=== PATIENT | male | born 1940 | race Caucasian/White ===

== ENCOUNTER 2017-03-04 10:20 | Outpatient (CLI) | payer MEDICARE ==
[2017-03-04 12:21] LABS: Hematocrit 45.1 % (42.0-52.0); Mean Platelet Volume 7.4 fL (7.4-10.4); Red Blood Cell (RBC) Count 4.79 mill/uL (4.70-6.10); White Blood Cell (WBC) Count 8.2 thou/uL (4.8-10.8)
[2017-03-04 12:26] LABS: Prothrombin Time 13.5 SEC (12.0-14.7)
[2017-03-04 12:40] LABS: Anion Gap 11 mmol/L (10-20); BUN (Urea Nitrogen) 22 mg/dL (8.4-25.7); Calc. Creatinine Clearance 0 mL/min (70-130); Calcium 9.4 mg/dL (7.8-10.44); Carbon Dioxide 29 mmol/L (23-31); Chloride 102 mmol/L (98-107); Estimated GFR-MDRD 63
--- NOTE | 2017-03-04 14:51 | EKG ---
Test Reason : Blood Pressure : / mmHG Vent. Rate : 060 BPM Atrial Rate : 060 BPM P-R Int : 184 ms QRS Dur : 098 ms QT Int : 424 ms P-R-T Axes : 030 -16 014 degrees QTc Int : 424 ms Normal sinus rhythm Inferior infarct , age undetermined cannot be excluded Abnormal ECG Confirmed by MALCOLM RAJAN ([id number]) on 03/04/2017 2:51:22 PM Referred By: MARIZA Confirmed By:MALCOLM RAJAN
== END 2017-03-04 10:21 | disposition home or self-care (01) ==
LOC: LABBT 10:20
PROVIDERS: ATTEND Orthopaedic Surgery
DX: Z01.818 Encounter for other preprocedural examination (principal); M19.071 Primary osteoarthritis, right ankle and foot
CPT/HCPCS: 80048; 85027; 85610; 85730; 86850; 86900; 86901; 87081; 93005; 93010

== ENCOUNTER 2017-03-04 10:30 | Inpatient (IN) | payer MEDICARE ==
[2017-03-04 10:41] VITALS: BMI 28.1
[2017-03-11] MEDS ORDERED: CEFAZOLIN/Water 2 GM/20 ML SYRINGE ONE (11:04)
[2017-03-11] MEDS ORDERED: Fentanyl 100 MCG/2 ML VIAL ONE ×4 (11:16→17:06)
[2017-03-11] MEDS ORDERED: Midazolam HCl 2 mg/2 ml Vial ONE (11:16)
[2017-03-11] MEDS ORDERED: traMADol HCl 50 MG TAB PO PRN ×3 (11:57→17:54)
[2017-03-11] MEDS ORDERED: Fentanyl 100 MCG/2 ML VIAL IV PRN (11:58)
[2017-03-11] MEDS ORDERED: Ropivacaine HCl/PF 750 ML in Premix Bag 1 BAG NERVE BLCK SCH (12:00)
[2017-03-11] MEDS ORDERED: Scopolamine 1.5 mg/72 hour Patch ONE (12:22)
[2017-03-11] MEDS ORDERED: Ropivacaine 0.5% HCl/PF (150 MG/30 ML VIAL) ONE (13:26)
[2017-03-11] MEDS ORDERED: Ropivacaine 0.2% HCl/PF (40 MG/20 ML VIAL) ONE (13:26)
[2017-03-11] MEDS ORDERED: Metoclopramide HCl 10 MG/2 ML VIAL ONE (13:40)
[2017-03-11] MEDS ORDERED: Dexamethasone 20 MG/5 ML VIAL ONE (13:40)
[2017-03-11] MEDS ORDERED: Propofol 200 MG/20 ML VIAL ONE (13:40)
[2017-03-11] MEDS ORDERED: Ondansetron HCl/PF 4 MG/2 ML Vial ONE (13:40)
[2017-03-11] MEDS ORDERED: Glycopyrrolate 0.2 MG/ML 5 ML SYRINGE ONE (13:40)
[2017-03-11] MEDS ORDERED: Lidocaine 1% PF 5 ML VIAL ONE (13:40)
[2017-03-11] MEDS ORDERED: Ondansetron HCl/PF 4 MG/2 ML Vial IVP PRN ×3 (17:52→17:54)
[2017-03-11] MEDS ORDERED: Meperidine HCl/PF 25 MG/ML VIAL SLOW IVP PRN (17:53)
[2017-03-11] MEDS ORDERED: Promethazine HCl 25 MG/ML VIAL SLOW IVP PRN (17:53)
[2017-03-11] MEDS ORDERED: Promethazine HCl 25 MG/ML VIAL IM PRN (17:53)
[2017-03-11] MEDS ORDERED: Acetaminophen 325 MG TAB PO PRN (17:54)
[2017-03-11] MEDS ORDERED: diphenhydrAMINE 25 MG CAP PO PRN (17:54)
[2017-03-11] MEDS ORDERED: Morphine 2 MG/ML SYRINGE IVP PRN (17:54)
[2017-03-11] MEDS ORDERED: Zolpidem Tartrate 5 MG TAB PO PRN (17:54)
[2017-03-11] MEDS ORDERED: Acetaminophen 1,000 MG in Premix Bag 1 BAG IVPB SCH (18:00)
[2017-03-11] MEDS ORDERED: CEFAZOLIN/Water 2 GM/20 ML SYRINGE SLOW IVP SCH (18:30)
--- NOTE | 2017-03-11 20:06 | RAD ---
THREE VIEWS RIGHT ANKLE: 03/11/17 HISTORY: Right ankle arthroplasty. Three intraoperative images obtained. Images demonstrate a right ankle arthroplasty. Distal tibial and talar dome components are in good p osition. IMPRESSION: Status post right ankle arthroplasty. POS: [facility]
[2017-03-11] MEDS: Ketorolac Tromethamine 30 MG/ML VIAL IVP SCH ×2 (21:26→21:27)
[2017-03-11] MEDS: Sodium Chloride 0.9% 1,000 ML IV SCH (21:28)
[2017-03-11] MEDS: Aspirin 325 MG TAB PO SCH (21:45)
[2017-03-12] MEDS: CEFAZOLIN/Water 2 GM/20 ML SYRINGE SLOW IVP SCH ×2 (00:03→09:57)
[2017-03-12] MEDS: Ketorolac Tromethamine 30 MG/ML VIAL IVP SCH ×2 (00:03→06:46)
[2017-03-12] MEDS: Sodium Chloride 0.9% 1,000 ML IV SCH (00:50)
[2017-03-12 04:16] VITALS: TEMP 98.6
[2017-03-12 06:48] LABS: Hematocrit 35.9 % (42.0-52.0); Mean Platelet Volume 7.7 fL (7.4-10.4); Red Blood Cell (RBC) Count 3.78 mill/uL (4.70-6.10); White Blood Cell (WBC) Count 11.4 thou/uL (4.8-10.8)
[2017-03-12] MEDS ORDERED: Ferrous Gluconate 324 MG TAB PO SCH (08:00)
[2017-03-12] MEDS ORDERED: Senokot S 8.6-50 MG TAB PO SCH (09:00)
[2017-03-12] MEDS ORDERED: FLU VACC TS2017-18 (>65YR) 0.5 ML SYRINGE IM ONE (09:00)
[2017-03-12] MEDS ORDERED: Lisinopril/Hydrochlorothiazide 20 mg/12.5 mg Tablet PO SCH (09:00)
[2017-03-12] MEDS ORDERED: Multivitamin W/ Minerals 1 TAB PO SCH (09:00)
[2017-03-12] MEDS: Aspirin 325 MG TAB PO SCH (09:56)
[2017-03-12 11:25] VITALS: BP 120/70
--- OUTSIDE RECORDS SUMMARY | 2017-03-12 17:25 | XMS | Clinical Summary ---
:1940 Author Organization [facility] Address [address] [place] [address] Phone Care Team Providers Name Role Phone , Primary Care Provider Unavailable Allergies Not on File Current Medications Not on file Active Problems Not on file Social History Tobacco Use Types Packs/Day Years Used Date Never Assessed Sex Assigned at Date Recorded Not on file Last Filed Vital Signs Not on file Plan of Treatment Not on file Results Not on filefrom Last 3 Months
--- OUTSIDE RECORDS SUMMARY | 2017-03-12 17:25 | XMS | Clinical Summary ---
:1940 Author Organization [facility] Address [address] [place] [phone] Phone Care Team Providers Name Role Phone [...]
--- NOTE | 2017-03-13 14:43 | OP ---
DATE OF PROCEDURE: 03/11/2017 PREOPERATIVE DIAGNOSIS: Posttraumatic right ankle arthrosis. POSTOPERATIVE DIAGNOSIS: Posttraumatic right ankle arthrosis. PROCEDURES: 1. Right total ankle arthroplasty. 2. Hardware removal, right ankle deep. 3. Fluoroscopic guidance internal fixation. ANESTHESIA: General. SURGEON: Nakul Wright M.D. GYM INSTRUCTOR: Vinay Agosto PA-C COMPLICATIONS: None. CONDITION: Good. ESTIMATED BLOOD LOSS: 150 mL. DRAINS: None. TOURNIQUET: Per Anesthesia. TECHNIQUE: Consent was obtained. The patient taken to the operating room, placed in the supine pos ition. After adequate general anesthesia had been achieved, the patient's right ankle was examined. The patient had marked limitation of the tibiotalar motion with moderate subtalar and transverse t arsal limitation. The foot lacked approximately 10 degrees of dorsiflexion with the knee extended. The right lower extremity was then positioned, prepped and draped in the usual sterile fashion. To urniquet placed on right upper thigh. The left lower extremity was placed in an abducted flexed pos ition, well padded with a thigh batista device. The image intensifier used to check position and loc ation of the true mortise view prior to procedure beginning. Right lower extremity was then prepped and draped in the usual sterile fashion. A direct lateral approach to the distal fibula was perfor med. This allowed access to the fibular plate, which was removed in its entirety. Medial malleolar screws were also removed. Single anteromedial malleolar screw was removed. The right lower extrem ity was then elevated, exsanguinated, and tourniquet inflated prior to incision. A direct anterior approach to the ankle was performed. Neurovascular structures were retracted laterally. The interv al between the EHL and the anterior tibia exposed. The anterior capsular structures were elevated, and the patient had large osteophytes anteriorly. Osteotome used to resect the tibial and talar ost eophytes, improving the motion. The anterior screws were also removed from the distal tibia. After mobilization, the patient still had significant restriction in dorsiflexion. A percutaneous tendo- Achilles lengthening was performed. This improved dorsiflexion to 5-10 degrees. The patient was th en placed in the alignment jig and positioned and the heel was pinned. Using the alignment system, an image intensifier used to localize the 6 mm drill bit. A small incision was made plantarly and t he drill placed into the central portion of the tibia. After the guidewire was placed, the size 4 c utting block was placed over the joint line. This was checked in multiple planes position and locat ion of the resection. The jig was then pinned in place, and using the oscillating saw, the cuts wer e completed. The distal tibia was then sized for the size 4 long. The 16 mm reamer was then insert ed in appropriate depth to check for position and alignment. The stem was then inserted and built w ith a 16 top, 16 mid, and 18 base. The long 4 tibial tray was then impacted into the mortise and th en inserted into the tibia. This was checked for position and location and showed good alignment. The talus cut was then checked and medial lateral gutters were cleared of osteophytes and mobilized. The size 3 talus was trialed with the 10 mm bearing surface inserted. The patient had dorsiflexio n approximately 10 degrees. Good balancing and a near full plantarflexion. The talus was then pinn ed in place and the pegs drilled along with the central peg. After copious irrigation, the talus wa s then positioned, impacted, and checked for position and alignment. I again trialed. The size 10 mm bearing surface was inserted with the insertion device and impacted. After copious irrigation, t he soft tissues and retinacular tissues closed with some 0 Vicryl, the subcu with 2-0 Vicryl, and th e skin with 3-0 nylon interrupted suture. The patient had had release of the tourniquet prior to co mpletion and hemostasis had been obtained. A sterile bulky dressing was applied, and the patient wa s taken to recovery. The patient's risk factors include previous surgeries and possible skin insuff iciency. Risks were explained. We will keep close monitoring of skin.
--- NOTE | 2017-03-13 14:43 | DIS ---
ADMITTING DIAGNOSES: Post-traumatic arthritis, right ankle. HOSPITAL COURSE: The patient was admitted and underwent a right total ankle arthroplasty. He juan carlos ated this well. Postoperatively, he progressed well with nonweightbearing, had minimal pain with hi s anesthetic nerve block. He tolerated this well. At the time of discharge, he was independent, nonweightbearing, tolerating oral medication and his n eurologic and vascular is intact distally. Prognosis is good.
== END 2017-03-12 11:34 | disposition home or self-care (01) | DRG 469 ==
LOC: SURG A 03-11 10:13 → SJJU 03-11 19:39
PROVIDERS: ADMIT Orthopaedic Surgery; ATTEND Orthopaedic Surgery
PROC: 3E0T3BZ Introduction of Anesthetic Agent into Peripheral Nerves and Plexi, Percutaneous Approach (ICD-10-PCS; principal; 2017-03-11)
PROC: 0SRF0JA Replacement of Right Ankle Joint with Synthetic Substitute, Uncemented, Open Approach (ICD-10-PCS; 2017-03-11)
PROC: 0SPF04Z Removal of Internal Fixation Device from Right Ankle Joint, Open Approach (ICD-10-PCS; 2017-03-11)
DX: M19.071 Primary osteoarthritis, right ankle and foot (principal); G47.33 Obstructive sleep apnea (adult) (pediatric); M19.079 Primary osteoarthritis, unspecified ankle and foot; G43.909 Migraine, unspecified, not intractable, without status migrainosus; Z88.5 Allergy status to narcotic agent; Z87.891 Personal history of nicotine dependence; M17.12 Unilateral primary osteoarthritis, left knee
CPT/HCPCS: 36415; 76001; 85027; 90471; 90682; 90732; C1713; C1776; G0008; G0009; G8978-GP-CI; G8979-GP-CI; G8980-GP-CI; J0131; J1100; J1885; J2001; J2250; J2405; J2704; J2765; J2795; J3010; J3490; Q2036